=== PATIENT | female | born 1960 | race Caucasian/White ===

== ENCOUNTER → 2016-11-10 | Outpatient (CLI) | payer OTHER ==
[2014-05-04 09:28] VITALS: O2SAT 99
[2016-11-10 11:55] LABS: PATHOLOGY SPEC OR BIOPSY REFER MAYO/MKTO PATH
== END | disposition home or self-care (01) | DRG 607 ==
LOC: CONVCARE 10:30
PROVIDERS: ATTEND Orthopaedic Surgery
DX: R22.31 Localized swelling, mass and lump, right upper limb (principal)
CPT/HCPCS: 99001

== ENCOUNTER 2019-04-01 11:25 | Day surgery (SDC) | payer BC, OTHER ==
[2019-04-01] MEDS ORDERED: KETOROLAC TROMETHAMINE 30 MG/ML SOL ONE ×2 (11:29→11:39)
[2019-04-01] MEDS: CYCLOPENTOLATE 1% SOL ONE ×3 (11:50→11:56)
[2019-04-01] MEDS: PHENYLEPHRINE HCL 10% OPHTHAL SOL ONE ×3 (11:50→11:56)
[2019-04-01] MEDS: TROPICAMIDE 1% OPHTH SOL ONE ×3 (11:50→11:57)
[2019-04-01] MEDS ORDERED: KETOROLAC/HOME 0.5% SOL RIGHTEYE ONE ×3 (11:51→11:57)
[2019-04-01] MEDS ORDERED: MOXIFLOXACIN-HOME SOL RIGHTEYE ONE ×2 (11:51→11:54)
[2019-04-01] MEDS ORDERED: FENTANYL 100MCG/2ML SOL ONE (11:55)
[2019-04-01] MEDS ORDERED: MIDAZOLAM 2 MG/2 ML SOL ONE (11:55)
[2019-04-01] MEDS: TETRACAINE HCL 0.5 % 1 DROP SOL ONE ×2 (11:57→12:47)
[2019-04-01] MEDS ORDERED: BSS W/ 0.5 MG P.F. EPI 1 BOTTLE ONE (12:39)
[2019-04-01] MEDS ORDERED: POVIDONE IODINE 5% SOL ONE (12:39)
[2019-04-01] MEDS ORDERED: LIDOCAINE HCL 2% MPF 10 ML SOL ONE (12:39)
[2019-04-01] MEDS ORDERED: ACETAZOLAMIDE 250 MG PO ONE (12:55)
[2019-04-01 13:12] VITALS: BP 116/66; PULSE 58; RESP 20; TEMP 97.4; O2SAT 98
[2019-04-01] MEDS ORDERED: ACETAZOLAMIDE 500 MG CER PO ONE (13:15)
== END 2019-04-01 13:28 | disposition home or self-care (01) ==
LOC: SURG 11:25
PROVIDERS: ATTEND Ophthalmology
DX: H25.89 Other age-related cataract (principal)
CPT/HCPCS: J1885; J2250; J3010; A9270-GY

== ENCOUNTER 2019-04-22 10:56 | Day surgery (SDC) | payer BC, MEDICAID ==
[2019-04-22] MEDS: PHENYLEPHRINE HCL 10% OPHTHAL SOL ONE ×3 (11:16→11:22)
[2019-04-22] MEDS ORDERED: MOXIFLOXACIN-HOME SOL LEFTEYE ONE ×2 (11:16→11:19)
[2019-04-22] MEDS: TROPICAMIDE 1% OPHTH SOL ONE ×3 (11:16→11:22)
[2019-04-22] MEDS ORDERED: KETOROLAC/HOME 0.5% SOL LEFTEYE ONE ×3 (11:16→11:22)
[2019-04-22] MEDS: CYCLOPENTOLATE 1% SOL ONE ×3 (11:16→11:22)
[2019-04-22] MEDS: TETRACAINE HCL 0.5 % 1 DROP SOL ONE ×2 (11:23→12:54)
[2019-04-22 11:26] VITALS: PULSE 64; RESP 16
[2019-04-22] MEDS ORDERED: ONDANSETRON HCL 4 MG/2 ML SOL ONE (12:00)
[2019-04-22] MEDS ORDERED: MIDAZOLAM 2 MG/2 ML SOL ONE (12:00)
[2019-04-22] MEDS ORDERED: FENTANYL 100MCG/2ML SOL ONE (12:01)
[2019-04-22] MEDS ORDERED: POVIDONE IODINE 5% SOL ONE (12:50)
[2019-04-22] MEDS: LIDOCAINE HCL 2% MPF 10 ML SOL ONE ×2 (12:57→13:03)
[2019-04-22] MEDS: BSS W/ 0.5 MG P.F. EPI 1 BOTTLE ONE ×2 (12:59→13:03)
[2019-04-22 13:20] VITALS: BP 129/70; TEMP 97.7; O2SAT 97
== END 2019-04-22 13:36 | disposition home or self-care (01) ==
LOC: SURG 10:56
PROVIDERS: ATTEND Ophthalmology
DX: H25.89 Other age-related cataract (principal)
CPT/HCPCS: J2250; J2405; J3010; A9270-GY